=== PATIENT | male | born 1970 | race Caucasian/White ===

== ENCOUNTER 2021-03-06 23:16 | Emergency (ER) | payer OTHER, SELFPAY ==
[2021-03-06 23:25] VITALS: BP 157/78; PULSE 66; RESP 16; TEMP 37.2; O2SAT 98
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
--- NOTE | 2021-03-06 23:52 | DI.RAD.S_ITS ---
PROCEDURE: XR FINGER RT MIN 2V INDICATIONS: pain, deformity TECHNIQUE: AP hand, 2 views of the right 4th finger(s) acquired. COMPARISON: None. FINDINGS: Bones: Avulsion fracture of the dorsal plate of the base of the 4th distal phalange. Soft tissues: No suspicious soft tissue calcifications. IMPRESSION: 4th distal phalange fracture. Dictated by: Gia Beckett MD, PhD on 03/07/2021 at 8:24 Approved by: Gia Beckett MD, PhD on 03/07/2021 at 8:25
[2021-03-06] MEDS: ONDANSETRON 4 MG ODT SL (23:58)
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
[2021-03-07 01:46] VITALS: BP 165/80; PULSE 96; RESP 18; O2SAT 97
== END 2021-03-07 01:47 | disposition home or self-care (01) ==
PROVIDERS: Emergency Provider Emergency Medicine
DX: S06.0X9A Concussion with loss of consciousness of unspecified duration, initial encounter (principal); S00.03XA Contusion of scalp, initial encounter; S62.609A Fracture of unspecified phalanx of unspecified finger, initial encounter for closed fracture; Y04.2XXA Assault by strike against or bumped into by another person, initial encounter
CPT/HCPCS: 29130; 70450; 73140; 99284